=== PATIENT | male | born 1975 | race Caucasian/White ===

== ENCOUNTER → 2017-10-10 | Outpatient (CLI) | payer OTHER ==
[~2017-10-10] MED LIST: AMLO-99 PO; DULO30CA35 PO; DULO60CA56 PO; HYDR-2966 PO; LISI-362 PO; LISI20TA29 PO; METO-233 PO; MODA200T55 PO; TEST1.25 TD; TEST90SO TD; TRAM-420 PO
[2017-10-10 09:10] LABS: PLATELET COUNT, AUTOMATED 356 K/uL (150-450)
[2017-10-10 09:23] LABS: LDL CHOLESTEROL 122 mg/dl
== END ==
LOC: LAB 08:51
PROVIDERS: ATTEND Internal Medicine
DX: R53.83 Other fatigue (principal); I10 Essential (primary) hypertension; G47.33 Obstructive sleep apnea (adult) (pediatric)
CPT/HCPCS: 36415; 81001; 82040; 82247; 82310; 82374; 82435; 82465; 82565; 82947; 83718; 84075; 84132; 84155; 84295; 84402; 84403; 84443; 84450; 84460; 84478; 84520; 85025

== ENCOUNTER → 2017-12-21 | Outpatient (CLI) | payer OTHER ==
[~2017-12-21] MED LIST changes: +ALBU8.5H IH; +AZIT-1 PO; +PRED20TA6 PO
[2017-12-21 09:20] LABS: PLATELET COUNT, AUTOMATED 292 K/uL (150-450)
--- NOTE | 2017-12-21 10:07 | RADIOLOGY IMAGING REPORT ---
FACILITY: [facility] PATIENT NAME: Van Daily : 1975 MR: [id number] V: [id number] EXAM DATE: ORDERING PHYSICIAN: AMPARO LOMBARDI TECHNOLOGIST: Location: [facility] [place] Patient: Van Daily : 1975 Visit/Account:[id number] Date of Sevice: 12/21/2017 Exam type: CHEST PA AND LAT History: Shortness of breath, left-sided chest pain Comparison: April 04, 2017. Findings: The lungs are free of acute effusions, infiltrates or edema. There is no evidence of a pneumothorax or pneumomediastinum. The cardiac silhouette is normal in size. The trachea is midline. IMPRESSION: 1. No acute cardiopulmonary process is seen Report Dictated By: Marlyn Castillo MD at 12/21/2017 10:01 AM Report E-Signed By: Marlyn Castillo MD at 12/21/2017 10:02 AM WSN:[id number]
--- NOTE | 2017-12-21 16:23 | EKG ---
FACILITY: [facility] - [place] PATIENT NAME: GAVIN CHAMPAGNE : [id number] MR: [id number] V: [id number] EXAM DATE: ORDERING PHYSICIAN: AMPARO LOMBARDI TECHNOLOGIST: NICHOLE NIETO Test Reason : CHEST PAIN Blood Pressure : / mmHG Vent. Rate : 066 BPM Atrial Rate : 066 BPM P-R Int : 166 ms QRS Dur : 090 ms QT Int : 402 ms P-R-T Axes : 066 -01 015 degrees QTc Int : 421 ms Normal sinus rhythm Normal ECG No previous ECGs available Referred By: AMPARO GARCIA Confirmed By:
== END ==
LOC: LAB 09:03
PROVIDERS: ATTEND Nurse Practitioner Primary Care
DX: R06.02 Shortness of breath (principal)
CPT/HCPCS: 36415; 71046; 82040; 82247; 82310; 82374; 82435; 82565; 82947; 84075; 84132; 84155; 84295; 84450; 84460; 84520; 85025; 85379

== ENCOUNTER → 2018-03-08 | Outpatient (CLI) | payer OTHER ==
[~2018-03-08] MED LIST changes: +GUAI600T57 PO; +LEVO-85 PO; +PRED-420 PO
== END ==
LOC: RESP 19:50
PROVIDERS: ATTEND Internal Medicine
DX: G47.33 Obstructive sleep apnea (adult) (pediatric) (principal)

== ENCOUNTER 2018-05-19 20:08 | Emergency (ER) | payer OTHER ==
[~2018-05-19 20:08] MED LIST changes: +METH4TAB66 PO; +PENI-24 PO
--- NOTE | 2018-05-19 20:18 | ER Report ---
History and Physical Time Seen By MD: 20:18 Hx. of Stated Complaint: SHORTNESS OF BREATHE HPI/ROS CHIEF COMPLAINT: cough HISTORY OF PRESENT ILLNESS: This is a 42 year old male. He has had a cough for about a week now. Was productive, but now dry and non-productive. Has been taking PCN since Sunday after being diagnosed with strep. Sore throat and phlegm improved, but cough not improving yet. Takes Lisinopril for blood pressure, and has recent stopped other medicine for blood pressure and following up with PCP for this. Has no chest pain. No fever or chills. He has sleep apnea on CPAP. No nausea or vomiting. No musculoskeletal pain. Cough keeping him up. Sometimes has been so severe it has made it difficult to breath and scared him last night. Allergies: Coded Allergies: BEE STINGS (Verified Allergy, Unknown, SWELLING, 05/19/18) strawberry (Verified Allergy, Unknown, NAUSEA/VOMITING, 05/19/18) shellfish derived (Verified Adverse Reaction, Unknown, NAUSEA/VOMITING, 05/19/18) Home Meds Active Scripts Guaifenesin/Codeine (GUAIFENESIN-CODEINE SYRUP) 5 Ml Syrp, 5 ML PO Q6H PRN for COUGH, #120 ML 0 Refills Prov:DENTON WOO MD 05/19/18 Benzonatate 100 Mg Cap (TESSALON PERLE 100 MG CAP) 100 Mg Capsule, 100 MG PO TID PRN for COUGH, #15 CAP 0 Refills Prov:DENTON WOO MD 05/19/18 Methylprednisolone (METHYLPREDNISOLONE) 4 Mg Tab.ds.pk, 4 MG PO DIRECTED, #1 PACK 0 Refills Prov:AMPARO LOMBARDI DNP, FNP-ADELSO 05/15/18 Penicillin V Potassium 500 Mg Tab (PENICILLIN V POTASSIUM 500 MG TAB) 500 Mg Tablet, 1 TAB PO BID for 10 Days, #20 TAB 0 Refills Prov:AMPARO LOMBARDI DNP, FNP-ADELSO 05/15/18 Lisinopril (LISINOPRIL) 20 Mg Tablet, 20 MG PO BID, #180 TAB 4 Refills Prov:LISETH BELTRAN MD 09/19/17 Reported Medications Guaifenesin (Guaifenesin ER) 600 Mg Tab.er.12h, 1200 PO BID 05/19/18 Discontinued Scripts Duloxetine Hcl (CYMBALTA) 60 Mg Capsule.dr, 60 MG PO QDAY, #90 CAP 1 Refill Prov:LISETH BELTRAN MD 03/07/18 Guaifenesin (MUCINEX) 600 Mg Tablet.er, 600 MG PO BID PRN for cough, #30 TAB Prov:LISETH BELTRAN MD 02/01/18 Prednisone 10 Mg Tab (PREDNISONE 10 MG TAB) 10 Mg Tab.ds.pk, 10 MG PO DAILY, #40 TAB 4 tablets x 3 days 3 tablets x 3 days 2 tablets x 3 days 1 tablet x 3 days .5 tablets x 3 days than stop Prov:LISETH BELTRAN MD 02/01/18 Levofloxacin 500 Mg Tab (LEVAQUIN 500 MG TAB) 500 Mg Tablet, 500 MG PO QDAY, #10 TAB Prov:LISETH BELTRAN MD 02/01/18 Albuterol Sulfate 90 Mcg/Act (PROAIR HFA 90 MCG/ACT) 8.5 Gm Hfa.aer.ad, 2 PUFF IH Q4-6H PRN for SHORTNESS OF BREATH, #1 INHALER 0 Refills Prov:AMPARO LOMBARDI DNP, FISCAL ECONOMIST-BC 12/21/17 Modafinil (PROVIGIL) 200 Mg Tablet, 200 MG PO QDAY, #30 TAB 3 Refills Prov:LISETH BELTRAN MD 10/31/17 Amlodipine Besylate (AMLODIPINE BESYLATE) 10 Mg Tablet, 1 TAB PO QDAY, #90 TAB 4 Refills Prov:LISETH BELTRAN MD 09/28/17 Hydrochlorothiazide (HYDROCHLOROTHIAZIDE) 25 Mg Tablet, 1 TAB PO QDAY, #90 TAB 2 Refills Prov:LISETH BELTRAN MD 09/20/17 Testosterone (AXIRON) 30 Mg/1.5 Ml Radha..operations chief, 30 MG TD QAM, #30 ML 2 Refills Prov:LISETH BELTRAN MD 05/08/17 Reviewed Nurses Notes: Yes Smoking Status: Never Smoker Hx Substance Use Disorder: No Hx Alcohol Use: No Constitutional Vital Sign - Last 24 Hours 05/19/18 05/19/18 05/19/18 05/19/18 20:12 20:14 20:38 20:43 Temp 98.1 Pulse 83 86 100 Resp 18 B/P (MAP) 186/115 (138) 186/115 Pulse Ox 95 93 96 O2 Delivery Room Air Room Air Room Air 05/19/18 05/19/18 05/19/18 05/19/18 21:08 21:13 21:18 21:30 Pulse 88 87 B/P (MAP) 148/94 (112) 163/97 (119) Pulse Ox 92 93 O2 Delivery Room Air 05/19/18 21:48 Pulse 81 Pulse Ox 94 Physical Exam General Appearance: Alert. No immediate need for airway protection. No acute distress. Non-toxic in appearance. Eyes: Pupils are equal, round. No pallor, injection or icterus. ENT: Mucous membranes are moist. Normal oral mucosa. Posterior oropharynx has mild erythema and some hypertrophy, but no exudates, no post-nasal drainage. Normal nasal mucosa. Normal tympanic membranes and canals. Neck: Supple and non tender. No lymphadenopathy. Respiratory: Lungs are clear to auscultation. There are no retractions or accessory muscle use. Cardiovascular: Regular rate and rhythm. No murmurs, gallops or rubs. Normal capillary refill. Neurological: Alert and oriented x3. No focal neurologic deficits Skin: Warm and dry. No rashes. Musculoskeletal: Extremities are nontender. No tenderness in palpation of the cervical, thoracic and lumbar spine. DIFFERENTIAL DIAGNOSIS: After history and physical exam, differential diagnosis was considered for cough, likely due to recent infection and just needing time to improve, but will check chest x-ray and labs. Could also be the lisinopril as cause. Medical Decision Making Data Points Result Diagram: 05/19/18205705/19/182057 Laboratory Hematology Test 05/19/18 20:58 Red Blood Count 4.91 M/uL (4.00-5.60) Mean Corpuscular Volume 84.6 fL (80.0-96.0) Mean Corpuscular Hemoglobin 30.4 pg (26.0-33.0) Mean Corpuscular Hemoglobin Concent 35.9 g/dL (32.0-36.0) Red Cell Distribution Width 13.7 % (11.5-14.5) Mean Platelet Volume 8.3 fL (7.2-11.1) Neutrophils (%) (Auto) 59.8 % (39.4-72.5) Lymphocytes (%) (Auto) 30.7 % (17.6-49.6) Monocytes (%) (Auto) 5.4 % (4.1-12.4) Eosinophils (%) (Auto) 2.7 % (0.4-6.7) Basophils (%) (Auto) 1.4 % (0.3-1.4) Nucleated RBC Relative Count (auto) 0.0 /100WBC Neutrophils # (Auto) 6.6 K/uL (2.0-7.4) Lymphocytes # (Auto) 3.4 K/uL (1.3-3.6) Monocytes # (Auto) 0.6 K/uL (0.3-1.0) Eosinophils # (Auto) 0.3 K/uL (0.0-0.5) Basophils # (Auto) 0.2 K/uL (0.0-0.1) Nucleated RBC Absolute Count (auto) 0.01 K/uL Sodium Level 140 mmol/L (137-145) Potassium Level 3.2 mmol/L (3.5-5.0) Chloride Level 100 mmol/L (98-107) Carbon Dioxide Level 28 mmol/L (22-30) Blood Urea Nitrogen 15 mg/dl (9-21) Creatinine 0.90 mg/dl (0.66-1.25) Glomerular Filtration Rate Calc > 60.0 Random Glucose 130 mg/dl (75-110) Calcium Level 8.9 mg/dl (8.4-10.2) Total Bilirubin 0.6 mg/dl (0.2-1.3) Aspartate Amino Transf (AST/SGOT) 22 U/L (0-35) Alanine Aminotransferase (ALT/SGPT) 28 U/L (0-56) Alkaline Phosphatase 44 U/L (0-126) Total Protein 7.1 g/dl (6.3-8.2) Albumin 4.3 g/dl (3.5-5.0) Chemistry Test 05/19/18 20:58 White Blood Count 11.0 k/uL (4.5-11.0) Red Blood Count 4.91 M/uL (4.00-5.60) Hemoglobin 14.9 g/dL (14.0-18.0) Hematocrit 41.5 % (42.0-52.0) Mean Corpuscular Volume 84.6 fL (80.0-96.0) Mean Corpuscular Hemoglobin 30.4 pg (26.0-33.0) Mean Corpuscular Hemoglobin Concent 35.9 g/dL (32.0-36.0) Red Cell Distribution Width 13.7 % (11.5-14.5) Platelet Count 367 K/uL (150-450) Mean Platelet Volume 8.3 fL (7.2-11.1) Neutrophils (%) (Auto) 59.8 % (39.4-72.5) Lymphocytes (%) (Auto) 30.7 % (17.6-49.6) Monocytes (%) (Auto) 5.4 % (4.1-12.4) Eosinophils (%) (Auto) 2.7 % (0.4-6.7) Basophils (%) (Auto) 1.4 % (0.3-1.4) Nucleated RBC Relative Count (auto) 0.0 /100WBC Neutrophils # (Auto) 6.6 K/uL (2.0-7.4) Lymphocytes # (Auto) 3.4 K/uL (1.3-3.6) Monocytes # (Auto) 0.6 K/uL (0.3-1.0) Eosinophils # (Auto) 0.3 K/uL (0.0-0.5) Basophils # (Auto) 0.2 K/uL (0.0-0.1) Nucleated RBC Absolute Count (auto) 0.01 K/uL Glomerular Filtration Rate Calc > 60.0 Calcium Level 8.9 mg/dl (8.4-10.2) Total Bilirubin 0.6 mg/dl (0.2-1.3) Aspartate Amino Transf (AST/SGOT) 22 U/L (0-35) Alanine Aminotransferase (ALT/SGPT) 28 U/L (0-56) Alkaline Phosphatase 44 U/L (0-126) Total Protein 7.1 g/dl (6.3-8.2) Albumin 4.3 g/dl (3.5-5.0) EKG/Imaging Imaging CHEST: Indication: Cough. Technique: Frontal and lateral views were obtained. Comparison: 12/21/2017 Skeletal and soft tissue structures: Intact and unremarkable. Heart and mediastinum: Within normal limits. Lung mercedes: Well-expanded and clear. No focal or diffuse opacities. Pleural spaces: Unremarkable. Impression: No acute process or significant change. Report Dictated By: Kennedy Wells MD at 05/19/2018 9:41 PM ED Course/Re-evaluation ED Course Chest x-ray negative. Labs negative other than slightly low potassium. Recommended follow-up with PCP as planned. Trial of Benzonatate and Guaifenesin with codeine. Decision to Disposition Date: May 19, 2018 Decision to Disposition Time: 21:52 Depart Departure Latest Vital Signs Vital Signs Date Time Temp Pulse Resp B/P (MAP) Pulse Ox O2 Delivery O2 Flow Rate FiO2 05/19/18 21:48 81 94 05/19/18 21:30 163/97 (119) 05/19/18 21:13 Room Air 05/19/18 20:14 98.1 18 Impression: Primary Impression: Cough Condition: Improved Disposition: HOME OR SELF-CARE Referrals: LISETH BELTRAN MD (PCP) New Scripts Guaifenesin/Codeine (GUAIFENESIN-CODEINE SYRUP) 5 Ml Syrp 5 ML PO Q6H PRN for COUGH, #120 ML 0 Refills Prov: DENTON WOO MD 05/19/18 Benzonatate 100 Mg Cap (TESSALON PERLE 100 MG CAP) 100 Mg Capsule 100 MG PO TID PRN for COUGH, #15 CAP 0 Refills Prov: DENTON WOO MD 05/19/18 Patient Instructions: Acute Cough (ED) Additional Instructions: Please follow-up with your regular doctor in the next 1-2 weeks for re- evaluation. Blood pressure up tonight, which is not unexpected, but need for follow-up. Your cough is likely due the recent infection and will just need time to get better if this is the case. Further evaluation may be needed as cough can be caused by your blood pressure medicine (Lisinopril), or from other lung problems associated with your sleep apnea or other problems. Take Tessalon Perles 100mg every 8 hours as needed for cough. Take Guaifenesin with Codeine, 1 teaspoon every 4 hours as needed for cough. DENTON WOO MD May 19, 2018 20:18
[2018-05-19] MEDS ORDERED: GUAI600T84 PO (20:21)
[2018-05-19] MEDS ORDERED: BENZONATATE 100 MG CAP PO ONE (20:50)
[2018-05-19 21:03] LABS: PLATELET COUNT, AUTOMATED 367 K/uL (150-450)
[2018-05-19 21:30] VITALS: BP 163/97
--- NOTE | 2018-05-19 21:45 | RADIOLOGY IMAGING REPORT ---
FACILITY: [facility] PATIENT NAME: Van Daily : 1975 MR: [id number] V: [id number] EXAM DATE: ORDERING PHYSICIAN: DENTON WOO TECHNOLOGIST: Location: [facility] Patient: Van Daily : 1975 Visit/Account:[id number] Date of Sevice: 05/19/2018 CHEST: Indication: Cough. Technique: Frontal and lateral views were obtained. Comparison: 12/21/2017 Skeletal and soft tissue structures: Intact and unremarkable. Heart and mediastinum: Within normal limits. Lung mercedes: Well-expanded and clear. No focal or diffuse opacities. Pleural spaces: Unremarkable. Impression: No acute process or significant change. Report Dictated By: Kennedy Wells MD at 05/19/2018 9:41 PM Report E-Signed By: Kennedy Wells MD at 05/19/2018 9:42 PM WSN:[id number]
[2018-05-19] MEDS ORDERED: ROBC PO (21:53)
[2018-05-19] MEDS ORDERED: BENZ100C4 PO (21:53)
[2018-05-19] MEDS ORDERED: guaiFENesin/CODEINE 5 ML UDBTL PO ONE (21:55)
[2018-05-19] MEDS ORDERED: guaiFENesin/CODEINE 5 ML UDBTL ONE (22:02)
== END 2018-05-19 22:11 | disposition home or self-care (01) ==
LOC: ER 20:24
DX: R05 Cough (principal)
CPT/HCPCS: 71046; 82040; 82247; 82310; 82374; 82435; 82565; 82947; 84075; 84132; 84155; 84295; 84443; 84450; 84460; 84520; 85025; 99283

== ENCOUNTER → 2018-06-15 | Outpatient (CLI) | payer OTHER ==
[~2018-06-15] MED LIST changes: +AMLO-113 PO; -AMLO-99 PO; +BENZ100C4 PO; +GUAI600T84 PO; +ROBC PO
== END ==
LOC: RESP 20:54
PROVIDERS: ATTEND Internal Medicine
DX: G47.33 Obstructive sleep apnea (adult) (pediatric) (principal); G47.36 Sleep related hypoventilation in conditions classified elsewhere

== ENCOUNTER 2018-07-02 19:34 | Emergency (ER) | payer OTHER ==
--- NOTE | 2018-07-02 19:45 | ER Report ---
History and Physical Time Seen By MD: 19:45 Hx. of Stated Complaint: patient requesting a couple doses of lisinopril until he can get his medication tomorrow. HPI/ROS CHIEF COMPLAINT: Medication refill HISTORY OF PRESENT ILLNESS: 42-year-old male patient presents to emergency room needing medication refill. Patient states that he has had a stressful 2 days. He states that his 14-year-old daughter was threatening to commit suicide yesterday. She locked herself in her room. Patient states that this afternoon after seeing his and dropping of breakfast to her at her work that he was issued a restraining order preventing him from returning home. He states that he is trying to keep his emotions in check at this point time. He states that he is unable to return home and needs refill on his lisinopril. He states that he talked with the police academy program coordinator and they will arrange for him to hot die picker his medications tomorrow. Patient denies any nausea, vomiting, headache. Patient states he does feel some pressure in his chest. Allergies: Coded Allergies: BEE STINGS (Verified Allergy, Unknown, SWELLING, 07/02/18) strawberry (Verified Allergy, Unknown, NAUSEA/VOMITING, 07/02/18) shellfish derived (Verified Adverse Reaction, Unknown, NAUSEA/VOMITING, 07/02/18) Home Meds Active Scripts Lisinopril (LISINOPRIL) 20 Mg Tablet, 20 MG PO BID, #180 TAB 4 Refills Prov:LISETH BELTRAN MD 09/19/17 Discontinued Reported Medications Guaifenesin (Guaifenesin ER) 600 Mg Tab.er.12h, 1200 PO BID 05/19/18 Discontinued Scripts Guaifenesin/Codeine (GUAIFENESIN-CODEINE SYRUP) 5 Ml Syrp, 5 ML PO Q6H PRN for COUGH, #120 ML 0 Refills Prov:DENTON WOO MD 05/19/18 Benzonatate 100 Mg Cap (TESSALON PERLE 100 MG CAP) 100 Mg Capsule, 100 MG PO TID PRN for COUGH, #15 CAP 0 Refills Prov:DENTON WOO MD 05/19/18 Methylprednisolone (METHYLPREDNISOLONE) 4 Mg Tab.ds.pk, 4 MG PO DIRECTED, #1 PACK 0 Refills Prov:AMPARO LOMBARDI DNP, SHEARING SHED WORKER-BC 05/15/18 Penicillin V Potassium 500 Mg Tab (PENICILLIN V POTASSIUM 500 MG TAB) 500 Mg Tablet, 1 TAB PO BID for 10 Days, #20 TAB 0 Refills Prov:AMPARO LOMBARDI [facility] 05/15/18 Past Medical/Surgical History Patient has a past medical history of migraines, hypertension. Patient denies any surgical history. Reviewed Nurses Notes: Yes Smoking Status: Never Smoker Hx Substance Use Disorder: No Hx Alcohol Use: No Constitutional Vital Sign - Last 24 Hours 07/02/18 07/02/18 07/02/18 07/02/18 19:38 19:49 20:04 20:19 Temp 97.8 Pulse 88 84 85 88 Resp 20 B/P (MAP) 203/118 Pulse Ox 94 96 94 95 O2 Delivery Room Air 07/02/18 20:29 B/P (MAP) 168/109 (128) Physical Exam General appearance: Alert no distress. Respiratory: Chest is non tender, lungs are clear to auscultation. Cardiac: Regular rate and rhythm DIFFERENTIAL DIAGNOSIS: After history and physical exam differential diagnosis was considered for elevated blood pressure, anxiety, stress. Medical Decision Making EKG/Imaging EKG Interpretation 12 lead EKG: Rhythm: normal sinus rhythm [place]: normal QRS: normal ST segments: Nonspecific ST abnormality ED Course/Re-evaluation ED Course Patient was admitted to exam room, history and physical were obtained. The differential diagnoses were considered. On examination lungs are clear, heart is regular. Patient was complaining of some chest pressure and EKG was done. EKG was normal. We discussed doing lab work, which patient deferred at this time. I believe that the chest pressure is more related to the patient's anxiety secondary to being served a restraining order from his . Patient is to take his medication as prescribed. He is to talk with the police tomorrow to get his medications from his home. He is to follow-up with his primary care provider as per schedule. He is to return to emergency room if condition worsens. Patient verbalized understanding and agreement with plan. Decision to Disposition Date: Jul 02, 2018 Decision to Disposition Time: 20:28 Depart Departure Latest Vital Signs Vital Signs Date Time Temp Pulse Resp B/P (MAP) Pulse Ox O2 Delivery O2 Flow Rate FiO2 07/02/18 20:29 168/109 (128) 07/02/18 20:19 88 95 07/02/18 19:38 97.8 20 Room Air Impression: Primary Impression: Hypertension Condition: Improved Disposition: HOME OR SELF-CARE Referrals: LISETH BELTRAN MD (PCP) Patient Instructions: Hypertension (ED) Additional Instructions: Follow up with the police to get your medications. Continue with normal diet. Return to the ER if condition worsens. Follow up with your primary care provider as previously scheduled. Problem Qualifiers Primary Impression: Hypertension Hypertension type: essential hypertension Qualified Codes: I10 - Essential (primary) hypertension EMANUEL TRINH Jul 02, 2018 19:45
[2018-07-02] MEDS ORDERED: LISINOPRIL 20 MG TAB PO ONE (19:55)
--- NOTE | 2018-07-02 20:17 | EKG ---
[place] [facility] [place] NAME: GAVIN CHAMPAGNE : [id number] MR: [id number] V: [id number] EXAM DATE: ORDERING PHYSICIAN: EMANUEL TRINH TECHNOLOGIST: KEITH Bond Reason : CHEST TIGHTNESS Blood Pressure : / mmHG Vent. Rate : 082 BPM Atrial Rate : 082 BPM P-R Int : 172 ms QRS Dur : 086 ms QT Int : 364 ms P-R-T Axes : 080 044 049 degrees QTc Int : 425 ms Normal sinus rhythm No ST-T abnormalities When compared with ECG of 21-DEC-2017 08:14, Now with diffuse decrease in T wave amplitude Confirmed by VALARIE KERN ([id number]) on 07/02/2018 8:33:38 PM Referred By: Confirmed By:VALARIE KERN
[2018-07-02 20:29] VITALS: BP 168/109
== END 2018-07-02 20:31 | disposition home or self-care (01) ==
LOC: ER 19:52
DX: I10 Essential (primary) hypertension (principal)
CPT/HCPCS: 93005; 99283